=== PATIENT | male | born 1935 | race Caucasian/White ===

== ENCOUNTER 2016-11-01 13:49 | Observation (INO) | payer MEDICARE ==
[2016-11-01 13:49] VITALS: BMI 29.0
[2016-11-01] MEDS ORDERED: Sodium Chloride 0.9% 1,000 ML IV ONE (14:25)
[2016-11-01 14:33] LABS: BASO % 0.4 % (0.0-2.0); EOS # 0.1 K/uL (0.0-0.7); EOS % 1.1 % (0.0-4.0); HEMATOCRIT 42.7 % (35.0-51.0); LYMPH # 0.4 K/uL (1.0-4.3); LYMPH % 8.7 % (20.0-40.0); MEAN CELL VOLUME 86.8 fL (80.0-94.0); MEAN CORPUSCULAR HEMOGLOBIN 29.2 pg (27.0-31.0); MEAN CORPUSCULAR HGB CONC 33.7 g/dL (33.0-37.0); MEAN PLATELET VOLUME 8.2 fL (7.2-11.7); MONO % 0.9 % (0.0-10.0); NRBC % 0.1 % (0.0-2.0); PLATELET COUNT 151 K/uL (130-400); RED CELL DISTRIBUTION WIDTH 13.5 % (11.5-14.5); WHITE BLOOD COUNT 4.7 K/uL (4.8-10.8)
[2016-11-01] MEDS ORDERED: Sodium Chloride 0.9% 1,000 ML ONE (14:34)
[2016-11-01 14:45] LABS: CHLORIDE 101 mmol/L (98-107); SODIUM 140 mmol/L (132-148)
[2016-11-01 14:46] LABS: POTASSIUM 3.6 mmol/L (3.6-5.2)
[2016-11-01 14:48] LABS: ALB/GLOB RATIO 1.1 (1.0-2.1); ALKALINE PHOSPHATASE 86 U/L (38-126); AST/SGOT 26 U/L (17-59); BILIRUBIN,TOTAL 1.5 mg/dL (0.2-1.3); BLOOD UREA NITROGEN 14 mg/dL (9-20); CARBON DIOXIDE 28 mmol/L (22-30); GFR AFRICAN-AMERICAN > 60; GLUCOSE,RANDOM 102 mg/dL (75-110); TOTAL PROTEIN 7.8 g/dL (6.3-8.3)
[2016-11-01 14:49] LABS: ALT/SGPT 26 U/L (21-72); CALCIUM 8.6 mg/dl (8.6-10.4)
--- NOTE | 2016-11-01 15:15 | C.PDOC ---
History Of Present Illness 81 y/o male presents to ED with c/o generalized shaking since yesterday. Patient notes his blood pressure went up, and is concerned over HTN. Patient also reports mild cough this morning. Otherwise, denies abdominal pain, discomfort, changes in bowel habits. Notes he has has diminished appetite for the last year but denies any significant weight loss. Also states he has felt feverish in the last couple days but did not take his temperature.. Time Seen by Provider: 11/01/16 14:10 Chief Complaint (Nursing): High Blood Pressure History Per: Patient History/Exam Limitations: no limitations Onset/Duration Of Symptoms: Days Associated Symptoms: denies: Chest Pain, Dyspnea Recent travel outside of the [place]: No Past Medical History Reviewed: Historical Data, Nursing Documentation, Vital Signs Vital Signs: Last Vital Signs Temp 100.8 F H 11/01/16 16:08 Pulse 110 H 11/01/16 16:08 Resp 22 11/01/16 16:08 BP 134/79 11/01/16 16:08 Pulse Ox 96 11/01/16 16:08 - Medical History PMH: Depression, HTN, Hypercholesterolemia - [facility] Procedures CORONAR ARTERIOGR-2 CATH (08/20/05) INJECT/INFUSE NEC (08/26/14) LEFT HEART CARDIAC CATH (08/20/05) LT HEART ANGIOCARDIOGRAM (08/20/05) Family History: States: Unknown Family Hx - Social History Hx Alcohol Use: No Hx Substance Use: No - Immunization History Hx Pneumococcal Vaccination: Yes Review Of Systems Except As Marked, All Systems Reviewed And Found Negative. Constitutional: Positive for: Fever, Chills ENT: Negative for: Throat Pain Cardiovascular: Negative for: Chest Pain Respiratory: Positive for: Cough (mild). Negative for: Shortness of Breath, Wheezing Gastrointestinal: Negative for: Nausea, Vomiting Musculoskeletal: Negative for: Neck Pain Skin: Negative for: Rash Neurological: Negative for: Headache, Dizziness Physical Exam - Physical Exam Appears: Non-toxic, No Acute Distress Skin: Normal Color, Warm, Dry Head: Atraumatic, Normacephalic Oral Mucosa: Moist Neck: Supple Chest: Symmetrical Cardiovascular: Rhythm Regular Respiratory: Decreased Breath Sounds (at right base), No Accessory Muscle Use, Rales (left base), No Wheezing Gastrointestinal/Abdominal: Soft, No Tenderness, No Guarding, No Rebound Back: Normal Inspection Extremity: Normal ROM, Capillary Refill (< 2 sec. ) Neurological/Psych: Oriented x3, Normal Speech, Normal Cognition ED Course And Treatment - Laboratory Results Result Diagrams: 11/01/16 14:30 11/01/16 14:30 Lab Interpretation: Abnormal Interpretation Of Abnormal: Low WBC 4.7 but with left shift on diff, 88 Segs, CMP and urine negative ECG: Interpreted By Me ECG Rhythm: Sinus Tachycardia, 1st Degree HB O2 Sat by Pulse Oximetry: 95 (RA) Pulse Ox Interpretation: Normal - Radiology CXR: Viewed By Me, Read By Radiologist CXR Interpretation: Yes: No Acute Disease Progress Note: Temperature in triage 99.5, now with temperature of 102.7 once settled into his room. EKG, CxR, bloodwork, IV fluids, and Tylenol ordered. Reevaluation Time: 16:18 Reassessment Condition: Improved (Temp now 100.8 after Tylenol and rigors has stopped.) - Physician Consult Information Time Consulting Physician Contacted: 16:19 Physician Contacted: Yinka Sims Jr. Outcome Of Conversation: Patient to be admitted for possible bacterial infection with fever and rigors. Disposition - Disposition Disposition: HOSPITALIZED Disposition Time: 16:20 Condition: IMPROVED - POA Present On Arrival: None - Clinical Impression Clinical Impression: Sinus tachycardia, Fever and chills - Scribe Statement The provider has reviewed the documentation as recorded by the Suman Corrales Provider Attestation: All medical record entries made by the Adaiblandon were at my direction and personally dictated by me. I have reviewed the chart and agree that the record accurately reflects my personal performance of the history, physical exam, medical decision making, and the department course for this patient. I have also personally directed, reviewed, and agree with the discharge instructions and disposition.
--- NOTE | 2016-11-01 15:16 | RAD ---
PROCEDURE: CHEST RADIOGRAPH, 1 VIEW HISTORY: SOB COMPARISON: Comparison is made to the previous study dated 07/27/2016. FINDINGS: LUNGS: No evidence of new infiltrate or consolidation in the lungs. PLEURA: No pneumothorax or pleural fluid seen. CARDIOVASCULAR: Normal. OSSEOUS STRUCTURES: No significant abnormalities. VISUALIZED UPPER ABDOMEN: Normal. OTHER FINDINGS: None. IMPRESSION: No active disease.
[2016-11-01 15:17] LABS: RBC URINE 1 /hpf (0-3); URINE BILIRUBIN NEGATIVE (NEGATIVE); URINE BLOOD 1+ (NEGATIVE); URINE COLOR Yellow (YELLOW); URINE GLUCOSE (UA) NORMAL (Normal); URINE KETONE NEGATIVE (NEGATIVE); URINE LEUKOCYTE ESTERASE NEG Leu/uL (Negative); URINE PROTEIN NEGATIVE (NEGATIVE); URINE UROBILINOGEN NORMAL mg/dL (0.2-1.0); WBC URINE < 1 /hpf (0-5)
--- NOTE | 2016-11-01 16:04 | RAD ---
HISTORY: Cough and fever COMPARISON: 11/01/2016 TECHNIQUE: Chest PA and lateral FINDINGS: LUNGS: No active pulmonary disease. PLEURA: No significant pleural effusion identified. No pneumothorax apparent. CARDIOVASCULAR: Normal. OSSEOUS STRUCTURES: No significant abnormalities. VISUALIZED UPPER ABDOMEN: Normal. OTHER FINDINGS: None. IMPRESSION: No active pulmonary disease.
[2016-11-01 16:17] LABS: EOSINOPHIL 1 % (0-4); NEUTROPHIL 90 % (50-75); TOTAL CELLS COUNTED 100
--- NOTE | 2016-11-01 16:45 | CP.PCM.HP ---
History of Present Illness - History of Present Illness History of Present Illness: "Shaking" HPI: Patient is a 81 year with a history of htn, depression, anxiety, and hyperlipidedmia is here because he is complaining of uncontrolled shaking. He says that he started shaking about 2-3 hours as well. He said for the past 3 days he has felt feverish but with no chills. However this morning he woke up with body aches and feeling very light headed. He took no medication at home for fever or pain. He denies any changes in vision, hearing, but admits to a ringing in his ears, no neck stiffness, chest pain, shortness of breath, cough, wheezing, nausea, vomiting, diarrhea, dysuria, hematuria, joint pain, or swelling, numbness or tingling sensation. He is seen in the room with his present. He says his blood pressure medication was raised from 40mg to 80mg but does not remember the name and says he takes Aprazolam but does not remember the dose. He has never experienced any of these symptoms before He did get the flu shot at the end of last year. PMH: see above PSH: denies FH: Diabetes SH: Lives with , retired, denies any smoking history, etoh use, or illicit drug use. Allergies: none Present on Admission - Present on Admission Any Indicators Present on Admission: No History of DVT/PE: No History of Uncontrolled Diabetes: No Urinary Catheter: No Decubitus Ulcer Present: No History Surgical Site Infection Following: None Review of Systems - Review of Systems All systems: reviewed and no additional remarkable complaints except - Constitutional Constitutional: Chills, Fever, Malaise. absent: Headache, Weakness - EENT Eyes: absent: Blurred Vision, Change in Vision Ears: Dizziness - Cardiovascular Cardiovascular: Lightheadedness. absent: Chest Pain, Dyspnea, Palpitations - Respiratory Respiratory: absent: Cough, Dyspnea, Dyspnea on Exertion - Gastrointestinal Gastrointestinal: absent: Constipation, Diarrhea, Nausea, Vomiting - Genitourinary Genitourinary: absent: Dysuria, Hematuria, Urinary Frequency - Musculoskeletal Musculoskeletal: absent: Numbness, Tingling Additional comments: Body aches - Integumentary Integumentary: absent: Jaundice - Neurological Neurological: Dizziness, Tremor (constant for 2-3 hours). absent: Headaches, Weakness - Psychiatric Psychiatric: Anxiety - Endocrine Endocrine: absent: Excessive Sweating, Fatigue, Palpitations Past Patient History - Infectious Disease Hx of Infectious Diseases: None - Past Social History Smoking Status: Never Smoked - CARDIAC Hx Hypercholesterolemia: Yes Hx Hypertension: Yes - PULMONARY Other/Comment: HAVING SLEEP STUDY DUE TO SNORING. - HEMATOLOGICAL/ONCOLOGICAL Other/Comment: ELEVATED PSA - PSYCHIATRIC Hx Depression: Yes Hx Substance Use: No Meds Allergies/Adverse Reactions: Allergies Allergy/AdvReac Type Severity Reaction Status Date / Time No Known Allergies Allergy Verified 11/01/16 13:58 Physical Exam - Constitutional Appears: Non-toxic, No Acute Distress - Head Exam Head Exam: ATRAUMATIC, NORMAL INSPECTION, NORMOCEPHALIC - Eye Exam Eye Exam: Normal appearance Pupil Exam: NORMAL ACCOMODATION - ENT Exam ENT Exam: Normal Exam - Neck Exam Neck exam: Positive for: Normal Inspection - Respiratory Exam Respiratory Exam: Clear to Auscultation Bilateral. absent: Rales, Rhonchi, Wheezes - Cardiovascular Exam Cardiovascular Exam: REGULAR RHYTHM, RRR, +S1, +S2. absent: Gallop, Rubs - GI/Abdominal Exam GI & Abdominal Exam: Normal Bowel Sounds, Soft. absent: Guarding, Rebound, Tenderness - Extremities Exam Extremities exam: Positive for: normal inspection. Negative for: pedal edema - Back Exam Back exam: NORMAL INSPECTION - Neurological Exam Neurological exam: Oriented x3 - Psychiatric Exam Psychiatric exam: Normal Affect, Normal Mood - Skin Skin Exam: Warm (warm, flushed, intact) Results - Vital Signs Recent Vital Signs: Last Vital Signs Temp 100.8 F H 11/01/16 16:08 Pulse 110 H 11/01/16 16:08 Resp 22 11/01/16 16:08 BP 134/79 11/01/16 16:08 Pulse Ox 95 11/01/16 16:20 - Labs Result Diagrams: 11/01/16 14:30 11/01/16 14:30 Assessment & Plan (1) Fever and chills Assessment and Plan: Patient seen in the ED, he had a fever of 102.3 which came down with Tylenol and IV fluids, labs, EKG, and CXR were all unremarkable. blood and urine cultures drawn. Admitted patient to reg/obs floor. Vanc 1 gram daily, Zosyn 3.375gm q8H, half normal saline 70/hr. Tyelenol 650mg prn q6h. also follow up morning labs of influenza a&b, tsh/free4, cbc,cmp,mag, phos. Follow up blood and urine cultures Status: Acute Priority: High (2) HTN (hypertension) Assessment and Plan: Started Cozaar 50mgs, Valsartan is not in formulary. Status: Chronic Priority: High (3) Prophylactic measure Assessment and Plan: Heparin 5000 units sc q8h, scds Pepcid 20mg bid daily. Status: Suspected Decision To Admit - Pt Status Changed To: Hospital Disposition Of: Observation - . Bed Request Type: Regular
[2016-11-01 17:21] VITALS: RESP 20
[2016-11-01] MEDS ORDERED: Piperacillin/Tazobact 3.375 gm 100 ML IVPB ONE (17:24)
[2016-11-01] MEDS: Piperacill/Tazo 3.375gm in Dex 3.375 GM/50 ML BAG IVPB SCH ×2 (17:24→19:27)
[2016-11-01 17:34] LABS: VENOUS BLOOD GAS BASE EXCESS -0.4 mmol/L (0.0-2.0); VENOUS BLOOD GAS PCO2 33 mmHg (40-60); VENOUS BLOOD PH 7.45 (7.32-7.43)
[2016-11-01] MEDS: Sodium Chloride 0.45% 1,000 ML IV SCH (18:38)
[2016-11-01] MEDS ORDERED: Vancomycin 1 gm/NS 200 ml 1 GM/200 ML BAG IVPB SCH (20:00)
[2016-11-02] MEDS: Piperacill/Tazo 3.375gm in Dex 3.375 GM/50 ML BAG IVPB SCH ×2 (02:30→11:34)
[2016-11-02 07:30] VITALS: O2SAT 95
[2016-11-02 08:01] LABS: BASO % 0.2 % (0.0-2.0); EOS % 0.3 % (0.0-4.0); HEMATOCRIT 38.3 % (35.0-51.0); LYMPH # 0.5 K/uL (1.0-4.3); MEAN CELL VOLUME 86.2 fL (80.0-94.0); MEAN CORPUSCULAR HEMOGLOBIN 29.5 pg (27.0-31.0); MEAN CORPUSCULAR HGB CONC 34.3 g/dL (33.0-37.0); MEAN PLATELET VOLUME 8.8 fL (7.2-11.7); MONO # 0.4 K/uL (0.0-0.8); MONO % 5.8 % (0.0-10.0); NRBC % 0.1 % (0.0-2.0); PLATELET COUNT 130 K/uL (130-400); RED CELL DISTRIBUTION WIDTH 13.6 % (11.5-14.5); WHITE BLOOD COUNT 6.8 K/uL (4.8-10.8)
[2016-11-02 08:40] LABS: CHLORIDE 104 mmol/L (98-107)
[2016-11-02 08:41] LABS: POTASSIUM 3.6 mmol/L (3.6-5.2); SODIUM 137 mmol/L (132-148)
[2016-11-02 08:43] LABS: ALB/GLOB RATIO 0.9 (1.0-2.1); ALKALINE PHOSPHATASE 75 U/L (38-126); ALT/SGPT 35 U/L (21-72); AST/SGOT 36 U/L (17-59); BILIRUBIN,TOTAL 2.1 mg/dL (0.2-1.3); BLOOD UREA NITROGEN 14 mg/dL (9-20); CARBON DIOXIDE 24 mmol/L (22-30); GFR AFRICAN-AMERICAN > 60; GLUCOSE,RANDOM 98 mg/dL (75-110); TOTAL PROTEIN 6.8 g/dL (6.3-8.3)
[2016-11-02 08:44] LABS: MAGNESIUM 1.7 mg/dL (1.6-2.3); PHOSPHOROUS 2.9 mg/dL (2.5-4.5)
[2016-11-02 08:48] LABS: THYROID STIMULATING HORMONE 1.31 mIU/L (0.46-4.68)
[2016-11-02 08:51] LABS: NEUTROPHIL 82 % (50-75); REACTIVE LYMPHOCYTES 1 % (0-0); TOTAL CELLS COUNTED 100
[2016-11-02] MEDS ORDERED: Pantoprazole 40 mg EC Tab PO SCH (10:00)
--- NOTE | 2016-11-02 11:18 | CP.PCM.PN ---
Subjective - Date & Time of Evaluation Date of Evaluation: 11/02/16 Time of Evaluation: 11:17 - Subjective Subjective: PGY-[address] Sims's service: Objective - Vital Signs/Intake and Output Vital Signs (last 24 hours): Temp Pulse Resp BP Pulse Ox 98.4 F 81 20 132/72 95 11/02/16 07:27 11/02/16 07:27 11/02/16 07:27 11/02/16 07:27 11/02/16 07:27 Intake and Output: 11/02/16 11/02/16 06:59 18:59 Intake Total 1635 Output Total 700 Balance 935 - Medications Medications: Current Medications Acetaminophen (Tylenol 325mg Tab) 650 mg PO Q6 PRN PRN Reason: Fever >100.4 F Last Admin: 11/02/16 02:34 Dose: 650 mg Alprazolam (Xanax) 0.5 mg PO TID PRN PRN Reason: Anxiety Heparin Sodium (Porcine) (Heparin) 5,000 units SC Q8 [facility] Last Admin: 11/02/16 05:54 Dose: 5,000 units Piperacillin Sod/Tazobactam Sod (Zosyn 3.375 Gm Iv Premix) 3.375 gm in 50 mls @ 100 mls/hr IVPB Q8H [facility] Last Admin: 11/02/16 02:30 Dose: 100 mls/hr Vancomycin/Sodium Chloride (Vancocin) 1 gm in 200 mls @ 133 mls/hr IVPB Q24H [facility] Stop: 11/06/16 20:01 Last Admin: 11/01/16 20:57 Dose: 133 mls/hr Sodium Chloride (Sodium Chloride 0.45%) 1,000 mls @ 70 mls/hr IV .[id number] [facility] Last Admin: 11/01/16 18:38 Dose: 70 mls/hr Losartan Potassium (Cozaar) 50 mg PO DAILY [facility] Pantoprazole Sodium (Protonix Ec Tab) 40 mg PO DAILY [facility] Pneumococcal Polyvalent Vaccine (Pneumovax 23 Vaccine) 0.5 ml IM .ONCE ONE Stop: 11/03/16 10:01 - Labs Labs: 11/02/16 07:33 11/02/16 07:33
[2016-11-02] MEDS: Sodium Chloride 0.45% 1,000 ML IV SCH (11:34)
[2016-11-02 17:16] VITALS: BP 127/74; PULSE 84; TEMP 98.6
--- NOTE | 2016-11-02 17:38 | CP.PCM.DIS ---
Provider - Provider Date of Admission: 11/01/16 16:20 Attending physician: Yinka Sims Jr, MD Primary care physician: Levi Consults: none Time Spent in preparation of Discharge (in minutes): 45 Diagnosis - Discharge Diagnosis (1) Fever and chills Status: Acute Priority: High Comment: Elevated temp on admission. f/u blood cultures. Given tylenol (2) Viral syndrome Status: Acute Comment: Most likely viral cause. - no white count, no return of fever/chills Hospital Course - Lab Results Lab Results: Most Recent Lab Values WBC 6.8 K/uL (4.8-10.8) 11/02/16 07:33 RBC 4.44 Mil/uL (4.40-5.90) 11/02/16 07:33 Hgb 13.1 g/dL (12.0-18.0) 11/02/16 07:33 Hct 38.3 % (35.0-51.0) 11/02/16 07:33 MCV 86.2 fL (80.0-94.0) 11/02/16 07:33 MCH 29.5 pg (27.0-31.0) 11/02/16 07:33 MCHC 34.3 g/dL (33.0-37.0) 11/02/16 07:33 RDW 13.6 % (11.5-14.5) 11/02/16 07:33 Plt Count 130 K/uL (130-400) 11/02/16 07:33 MPV 8.8 fL (7.2-11.7) 11/02/16 07:33 Neut % (Auto) 86.7 % (50.0-75.0) H 11/02/16 07:33 Lymph % (Auto) 7.0 % (20.0-40.0) L 11/02/16 07:33 [place] % (Auto) 5.8 % (0.0-10.0) 11/02/16 07:33 Eos % (Auto) 0.3 % (0.0-4.0) 11/02/16 07:33 Baso % (Auto) 0.2 % (0.0-2.0) 11/02/16 07:33 Neut # 5.9 K/uL (1.8-7.0) 11/02/16 07:33 Lymph # 0.5 K/uL (1.0-4.3) L 11/02/16 07:33 [place] # 0.4 K/uL (0.0-0.8) 11/02/16 07:33 Eos # 0.0 K/uL (0.0-0.7) 11/02/16 07:33 Baso # 0.0 K/uL (0.0-0.2) 11/02/16 07:33 Neutrophils % (Manual) 82 % (50-75) H 11/02/16 07:33 Band Neutrophils % 8 % (0-2) H 11/02/16 07:33 Lymphocytes % (Manual) 5 % (20-40) L 11/02/16 07:33 Reactive Lymphs % 1 % (0-0) H 11/02/16 07:33 Monocytes % (Manual) 4 % (0-10) 11/02/16 07:33 Eosinophils % (Manual) 1 % (0-4) 11/01/16 14:30 Platelet Estimate Normal (NORMAL) 11/02/16 07:33 RBC Morphology Normal 11/02/16 07:33 pO2 75 mm/Hg (30-55) H 11/01/16 17:30 VBG pH 7.45 (7.32-7.43) H 11/01/16 17:30 VBG pCO2 33 mmHg (40-60) L 11/01/16 17:30 VBG HCO3 24.6 mmol/L 11/01/16 17:30 VBG Total CO2 23.9 mmol/L (22-28) 11/01/16 17:30 VBG O2 Sat (Calc) 97.9 % (40-65) H 11/01/16 17:30 VBG Base Excess -0.4 mmol/L (0.0-2.0) L 11/01/16 17:30 VBG Potassium 3.4 mmol/L (3.6-5.2) L 11/01/16 17:30 Sodium 140.0 mmol/l (132-148) 11/01/16 17:30 Chloride 109.0 mmol/L (98-107) H 11/01/16 17:30 Glucose 99 mg/dl (75-110) 11/01/16 17:30 Lactate 1.2 mmol/L (0.7-2.1) 11/01/16 17:30 Sodium 137 mmol/L (132-148) 11/02/16 07:33 Potassium 3.6 mmol/L (3.6-5.2) 11/02/16 07:33 Chloride 104 mmol/L (98-107) 11/02/16 07:33 Carbon Dioxide 24 mmol/L (22-30) 11/02/16 07:33 Anion Gap 13 (10-20) 11/02/16 07:33 BUN 14 mg/dL (9-20) 11/02/16 07:33 Creatinine 1.1 MG/DL (0.8-1.5) 11/02/16 07:33 Est GFR ( Amer) > 60 11/02/16 07:33 Est GFR (Non-Af Amer) > 60 11/02/16 07:33 Random Glucose 98 mg/dL (75-110) 11/02/16 07:33 Calcium 8.0 mg/dl (8.6-10.4) L 11/02/16 07:33 Phosphorus 2.9 mg/dL (2.5-4.5) 11/02/16 07:33 Magnesium 1.7 mg/dL (1.6-2.3) 11/02/16 07:33 Total Bilirubin 2.1 mg/dL (0.2-1.3) H 11/02/16 07:33 AST 36 U/L (17-59) 11/02/16 07:33 ALT 35 U/L (21-72) 11/02/16 07:33 Alkaline Phosphatase 75 U/L (38-126) 11/02/16 07:33 Total Creatine Kinase 42 U/L (55-170) L 11/01/16 14:30 Troponin I < 0.0120 ng/mL (0.00-0.120) 11/01/16 14:30 Total Protein 6.8 g/dL (6.3-8.3) 11/02/16 07:33 Albumin 3.2 g/dL (3.5-5.0) L D 11/02/16 07:33 Globulin 3.6 gm/dL (2.2-3.9) 11/02/16 07:33 Albumin/Globulin Ratio 0.9 (1.0-2.1) L 11/02/16 07:33 Free T4 1.18 ng/dL (0.78-2.19) 11/02/16 07:33 TSH 3rd Generation 1.31 mIU/L (0.46-4.68) 11/02/16 07:33 Venous Blood Potassium 3.4 mmol/L (3.6-5.2) L 11/01/16 17:30 Urine Color Yellow (YELLOW) 11/01/16 14:59 Urine Clarity Clear (Clear) 11/01/16 14:59 Urine pH 6.0 (5.0-8.0) 11/01/16 14:59 Ur Specific [place] 1.009 (1.003-1.030) 11/01/16 14:59 Urine Protein Negative mg/dL (NEGATIVE) 11/01/16 14:59 Urine Glucose (UA) Normal mg/dL (Normal) 11/01/16 14:59 Urine Ketones Negative mg/dL (NEGATIVE) 11/01/16 14:59 Urine Blood 1+ (NEGATIVE) H 11/01/16 14:59 Urine Nitrate Negative (NEGATIVE) 11/01/16 14:59 Urine Bilirubin Negative (NEGATIVE) 11/01/16 14:59 Urine Urobilinogen Normal mg/dL (0.2-1.0) 11/01/16 14:59 Ur Leukocyte Esterase Neg [place]/uL (Negative) 11/01/16 14:59 Urine WBC (Auto) < 1 /hpf (0-5) 11/01/16 14:59 Urine RBC (Auto) 1 /hpf (0-3) 11/01/16 14:59 Influenza Typ A,B (EIA) Negative for flu a/b (NEGATIVE) 11/01/16 17:13 - Hospital Course Hospital Course: On admission: Patient is a 81 year with a history of htn, depression, anxiety, and hyperlipidedmia is here because he is complaining of uncontrolled shaking. He says that he started shaking about 2-3 hours as well. He said for the past 3 days he has felt feverish but with no chills. However this morning he woke up with body aches and feeling very light headed. He took no medication at home for fever or pain. He denies any changes in vision, hearing, but admits to a ringing in his ears, no neck stiffness, chest pain, shortness of breath, cough, wheezing, nausea, vomiting, diarrhea, dysuria, hematuria, joint pain, or swelling, numbness or tingling sensation. He is seen in the room with his present. He says his blood pressure medication was raised from 40mg to 80mg but does not remember the name and says he takes Aprazolam but does not remember the dose. He has never experienced any of these symptoms before He did get the flu shot at the end of last year. Hospital course: Pt admitted on 11/01 for fever/chills/shaking. Temp in ED was 102.3. Pancultures drawn. CXR read as NAD. Pt was admitted to med/surg. Started on Vancomycin/ Zosyn broad-spectrum antibiotics. Pt afebrile, with no return of shaking/chills and asking to be discharged home. Pt discharged on 11/02. He was discharged with Z-sarkis prescription and told to follow up with his PMD or Dr. Sims, his attending in the hospital. Pt will be called if any of the cultures return positive. Discharge Exam - Head Exam Head Exam: ATRAUMATIC, NORMAL INSPECTION, NORMOCEPHALIC - Eye Exam Eye Exam: EOMI, PERRL Pupil Exam: NORMAL ACCOMODATION - ENT Exam ENT Exam: Mucous Membranes Moist - Neck Exam Neck exam: Full Rom - Respiratory Exam Respiratory Exam: Clear to PA & Lateral, NORMAL BREATHING PATTERN. absent: Accessory Muscle Use, Chest Wall Tenderness, Rales, Rhonchi, Wheezes, Respiratory Distress - Cardiovascular Exam Cardiovascular Exam: REGULAR RHYTHM, +S1, +S2 - GI/Abdominal Exam GI & Abdominal Exam: Normal Bowel Sounds, Soft. absent: Tenderness - Extremities Exam Extremities exam: normal inspection, pedal pulses present - Neurological Exam Neurological exam: Alert, Oriented x3 - Psychiatric Exam Psychiatric exam: Normal Affect, Normal Mood - Skin Skin Exam: Dry, Normal Color, Warm Discharge Plan - Discharge Medications Prescriptions: Azithromycin [Z-Sarkis] 250 mg PO DAILY #6 tab - Follow Up Plan Condition: FAIR Disposition: HOME/ ROUTINE Instructions: Azithromycin (By mouth), Fever in Adults (GEN), Chronic Hypertension (DC), Atrial Tachycardia (DC), Hypertensive Crisis (DC) Additional Instructions: Patient stable for discharge per Dr. Sims. Patient may resume his home medications. He has been prescribed the following medications: Azithromycin (Z-sarkis) Patient is make an appointment with their PMD within one week of discharge for follow-up. If pt does not have PMD, he may follow up with Dr. Sims, his primary physician while he was in the hospital. His office address/telephone number is listed below. Blood cultures were drawn in the ED on admission. The patient will be called if any return positive for a blood infection. He is advised to return to the emergency department if symptoms return or worsen. These instructions were given to the pt in Malay. Patient expressed verbal understanding of these instructions. Prescribed medications: Azithromycin (Z-sarkis), takes as directed on package Dr. Yinka Sims [id number] [facility] [place] [address] Referrals: Yinka Sims Jr., MD [Medical Doctor] -
[2016-11-02] MEDS ORDERED: Pneumococcal 23-Valent Vaccine IM ONE (18:15)
--- NOTE | 2016-11-02 23:24 | CARD ---
APPROVED REPORT EKG Measurement Heart [id number] <Conclusion> Sinus tachycardia with 1st degree AV block Otherwise normal ECG
== END 2016-11-02 18:45 | disposition home or self-care (01) ==
LOC: C.ER 13:49 → C.9E 16:20 → C.3T 17:17
PROVIDERS: ADMIT Internal Medicine; ATTEND Internal Medicine
DX: R50.9 Fever, unspecified (principal); B34.9 Viral infection, unspecified; R00.0 Tachycardia, unspecified
CPT/HCPCS: 36415; 71010; 71020; 80053; 81001; 82550; 82803; 83735; 84100; 84439; 84443; 84484; 85025; 86710; 87040; 87086; 87205; 87804; 90732; 93005; 99285; G0009; G0378; J1644; J2543; J3370; J7030; J7040

== ENCOUNTER 2017-08-25 08:19 | Emergency (ER) | payer MEDICARE ==
[2017-08-25 08:19] VITALS: BMI 29.0
--- NOTE | 2017-08-25 08:53 | C.PDOC ---
History Of Present Illness 82 year old male, with past medical history of BPH, HTN, hypercholesterolemia, presents to ED for evaluation of feeling off balance since waking up at 7:30 this morning. Patient also reports ringing in the ears. Notes having similar symptoms in the past, which would last about 2 seconds and resolve spontaneously. Patient notes that he has neurology appointment next month. Denies headache, chest pain, shortness of breath, fever, chills, extremity weakness or numbness or any other associated symptoms at this time. Time Seen by Provider: 08/25/17 08:43 Chief Complaint (Nursing): Dizziness/Lightheaded History Per: Patient History/Exam Limitations: no limitations Onset/Duration Of Symptoms: Hrs Current Symptoms Are (Timing): Still Present Recent travel outside of the [place]: No Additional History Per: Family Past Medical History Reviewed: Historical Data, Nursing Documentation, Vital Signs Vital Signs: Last Vital Signs Temp 97.8 F 08/25/17 11:49 Pulse 80 08/25/17 11:49 Resp 16 08/25/17 11:49 BP 149/75 08/25/17 11:49 Pulse Ox 98 08/25/17 11:49 - Medical History PMH: Anxiety, Depression, HTN, Hypercholesterolemia - [facility] Procedures CORONAR ARTERIOGR-2 CATH (08/20/05) INJECT/INFUSE NEC (08/26/14) LEFT HEART CARDIAC CATH (08/20/05) LT HEART ANGIOCARDIOGRAM (08/20/05) Family History: States: Unknown Family Hx - Social History Hx Alcohol Use: No Hx Substance Use: No - Immunization History Hx Influenza Vaccination: Yes Hx Pneumococcal Vaccination: Yes Review Of Systems Except As Marked, All Systems Reviewed And Found Negative. Constitutional: Negative for: Fever, Chills ENT: Positive for: Ear Pain (ringing in the ears). Negative for: Ear Discharge Cardiovascular: Negative for: Chest Pain, Palpitations Respiratory: Negative for: Cough, Shortness of Breath Neurological: Positive for: Dizziness (loss of balance). Negative for: Weakness , Numbness, Headache Physical Exam - Physical Exam Appears: Non-toxic, No Acute Distress Skin: Normal Color, Warm, Dry Head: Atraumatic, Normacephalic Eye(s): bilateral: Normal Inspection, PERRL, EOMI Ear(s): Bilateral: Normal (no erythema, cerumen impaction, or foreign body) Nose: Normal Oral Mucosa: Moist Neck: Normal ROM, Supple Chest: Symmetrical Cardiovascular: Rhythm Regular, No Murmur Respiratory: Normal Breath Sounds, No Rales, No Rhonchi, No Wheezing Gastrointestinal/Abdominal: Soft, No Tenderness Extremity: Normal ROM, No Deformity Neurological/Psych: Oriented x3, Normal Speech Gait: Steady ED Course And Treatment - Laboratory Results Result Diagrams: 08/25/17 09:24 08/25/17 09:24 Lab Interpretation: No Acute Changes ECG: Interpreted By Me, Viewed By Me ECG Rhythm: Sinus Rhythm, 1st Degree HB ECG Interpretation: No Acute Changes, No Changes From Prior (11/01/16) Rate From EC O2 Sat by Pulse Oximetry: 94 Pulse Ox Interpretation: Normal - CT Scan/US Head CT Other Rad Studies (CT/US): Read By Radiologist, Radiology Report Reviewed CT/US Interpretation: PROCEDURE: CT HEAD WITHOUT CONTRAST. HISTORY: dizziness , tinnitus. COMPARISON: None available. TECHNIQUE: Axial computed tomography images were obtained through the head/brain without intravenous contrast. Radiation dose: Total exam DLP = 951 mGy-cm. This CT exam was performed using one or more of the following dose reduction techniques: Automated exposure control, adjustment of the mA and/or kV according to patient size, and/or use of iterative reconstruction technique. FINDINGS: HEMORRHAGE: No intracranial hemorrhage. BRAIN: Scattered focal lucencies in the subcortical and periventricular white matter suggestive for chronic microvascular ischemic change. Prominence of the bifrontal as well as right parietal CSF extra-axial spaces which may represent bifrontal and right parietal cortical atrophy. Clinical correlation. VENTRICLES: Prominent. CALVARIUM: Unremarkable. PARANASAL SINUSES: Unremarkable as visualized. No significant inflammatory changes. MASTOID AIR CELLS: Unremarkable as visualized. No inflammatory changes. OTHER FINDINGS: None. IMPRESSION: Prominence of the bifrontal as well as right parietal CSF extra-axial spaces which may represent bifrontal and right parietal cortical atrophy. Clinical correlation. Correlation with MRI may be helpful if clinically indicated. Chronic microvascular ischemic changes. Prominent ventricles. Medical Decision Making Medical Decision Making: Impression: vertigo Plan: * Blood work * Urinalysis * Head CT * Reglan, IV fluids Progress note: Labs reviewed CT head shows no acute intracranial pathology EKG shows SR 73 bpm with 1st degree HB, no changes from prior Reassess On re-evaluation, patient feels unchanged. meclizine PO ordered. On second re-eval , he reports feeling better. He is ambulating well. No neuro deficits. I explained results to patient and provided copy of lab and CT imaging. Patient to be discharged and follow up outpatient Disposition Counseled Patient/Family Regarding: Studies Performed, Diagnosis, Need For Followup, Rx Given - Disposition Referrals: Yudelka Bo MD [Medical Doctor] - Disposition: HOME/ ROUTINE Disposition Time: 11:38 Condition: STABLE Additional Instructions: Vaya a diaz mdico o la clnica en 2-5 hernandez sin falta, para mas evaluacin. Devine los medicamentos edward indicado. Volver a la cornell de emergencia en cualquier momento si los sntomas persisten o empeoran. 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 - Scribe Statement The provider has reviewed the documentation as recorded by the Adaiblandon Agustin All medical record entries made by the Adaiblandon were at my direction and personally dictated by me. I have reviewed the chart and agree that the record accurately reflects my personal performance of the history, physical exam, medical decision making, and the department course for this patient. I have also personally directed, reviewed, and agree with the discharge instructions and disposition.
[2017-08-25] MEDS ORDERED: Sodium Chloride 0.9% 1,000 ML IV ONE (08:55)
[2017-08-25] MEDS ORDERED: Sodium Chloride 0.9% 1,000 ML ONE (09:23)
[2017-08-25 09:27] LABS: BASO % 0.4 % (0.0-2.0); EOS % 0.8 % (0.0-4.0); LYMPH # 0.9 K/uL (1.0-4.3); LYMPH % 19.8 % (20.0-40.0); MEAN CELL VOLUME 86.9 fL (80.0-94.0); MEAN CORPUSCULAR HEMOGLOBIN 30.4 pg (27.0-31.0); MONO # 0.3 K/uL (0.0-0.8); MONO % 6.7 % (0.0-10.0); NEUT # 3.5 K/uL (1.8-7.0); NEUT % 72.3 % (50.0-75.0); RBC 4.59 Mil/uL (4.40-5.90); RED CELL DISTRIBUTION WIDTH 13.7 % (11.5-14.5); WHITE BLOOD COUNT 4.8 K/uL (4.8-10.8)
[2017-08-25 09:38] LABS: ALBUMIN 3.9 g/dL (3.5-5.0)
[2017-08-25 09:39] LABS: ALT/SGPT 15 U/L (21-72); AST/SGOT 23 U/L (17-59); BLOOD UREA NITROGEN 17 mg/dL (9-20); CALCIUM 9.2 mg/dl (8.6-10.4); GFR AFRICAN-AMERICAN > 60; GFR NON-AFRICAN AMERICAN > 60
--- NOTE | 2017-08-25 10:00 | CT ---
PROCEDURE: CT HEAD WITHOUT CONTRAST. HISTORY: dizziness, tinnitus COMPARISON: None available. TECHNIQUE: Axial computed tomography images were obtained through the head/brain without intravenous contrast. Radiation dose: Total exam DLP = 951 mGy-cm. This CT exam was performed using one or more of the following dose reduction techniques: Automated exposure control, adjustment of the mA and/or kV according to patient size, and/or use of iterative reconstruction technique. FINDINGS: HEMORRHAGE: No intracranial hemorrhage. BRAIN: Scattered focal lucencies in the subcortical and periventricular white matter suggestive for chronic microvascular ischemic change. Prominence of the bifrontal as well as right parietal CSF extra-axial spaces which may represent bifrontal and right parietal cortical atrophy. Clinical correlation. VENTRICLES: Prominent. CALVARIUM: Unremarkable. PARANASAL SINUSES: Unremarkable as visualized. No significant inflammatory changes. MASTOID AIR CELLS: Unremarkable as visualized. No inflammatory changes. OTHER FINDINGS: None. IMPRESSION: Prominence of the bifrontal as well as right parietal CSF extra-axial spaces which may represent bifrontal and right parietal cortical atrophy. Clinical correlation. Correlation with MRI may be helpful if clinically indicated. Chronic microvascular ischemic changes. Prominent ventricles.
[2017-08-25 10:33] LABS: SQUAMOUS EPITHIAL < 1 /hpf (0-5); URINE BILIRUBIN NEGATIVE (NEGATIVE); URINE BLOOD NEGATIVE (NEGATIVE); URINE CLARITY Clear (Clear); URINE COLOR Yellow (YELLOW); URINE GLUCOSE (UA) NORMAL (Normal); URINE LEUKOCYTE ESTERASE NEG Leu/uL (Negative); URINE PROTEIN NEGATIVE (NEGATIVE); URINE UROBILINOGEN NORMAL mg/dL (0.2-1.0)
[2017-08-25 11:49] VITALS: BP 149/75; PULSE 80; RESP 16; TEMP 97.8
[2017-08-25 16:13] VITALS: O2SAT 94
== END 2017-08-25 12:12 | disposition home or self-care (01) ==
LOC: C.ER 08:19
DX: H83.09 Labyrinthitis, unspecified ear (principal)
CPT/HCPCS: 70450; 80053; 81001; 82948; 85025; 96361; 96374; 99285; J2765; J7040